=== PATIENT | male | born 2000 | race Caucasian/White ===

== ENCOUNTER 2021-02-07 22:04 | Emergency (ER) | payer SELFPAY | END 2021-02-08 04:00 | disposition home or self-care (01) | LOC: FER 22:04 | DX: S90.02XA Contusion of left ankle, initial encounter (principal); F17.290 Nicotine dependence, other tobacco product, uncomplicated; W50.1XXA Accidental kick by another person, initial encounter | CPT/HCPCS: 73610; 73620 ==